=== PATIENT | male | born 1980 | race Caucasian/White ===

== ENCOUNTER 2024-09-27 13:31 | Emergency (ER) | payer OTHER, SELFPAY ==
[2024-09-27 13:31] VITALS: BMI 34.8
[2024-09-27 13:33] VITALS: BP 170/95
[2024-09-27 14:13] VITALS: BP 134/65
--- NOTE | 2024-09-27 14:32 | ED.GENMED ---
History of Present Illness
General
Chief Complaint: Facial Problem
Source: patient
Time Seen by Provider: 09/27/24 14:02
History of Present Illness
History of Present Illness:
44-year-old male presents to the emergency room complaining of facial injury. 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 He has lacerations to his upper and lower lip. No loss of
conscious. Teeth feel like they are in place normally. No other complaints.
Past History
Past History
ED Past Medical History: None
ED Past Surgical History: None
Phy Exam
Physical Exam
Physical Exam:
General: Awake, Alert, Oriented X3. No acute distress.
Vitals: unremarkable
Head: Atraumatic
Eyes: Pupils equal, EOMI
Mouth: Upper lip has a laceration of the left inferior portion of the lip which is through and through but does not extend upward to the vermilion border
Lower lip has some superficial lacerations to the surface of the lip. There is a through and through laceration of the buccal mucosa to the cutaneous surface inferior to the lower lip left of the midline. This is a stellate laceration.
Throat: Airway intact, no exudates
Neck: Trachea midline
Neuro: Nonfocal
Skin: Warm, dry, no rash
Extremities: pulses equal b/l, no edema
Course
Orders/Labs/Results
Orders:
Orders
09/27/24 15:20
Cephalexin Monohydrate [Keflex] 500 mg PO NOW STA
Vital Signs
Initial and Last Documented VS:
Initial Vital Signs
Temp Pulse Resp BP Pulse Ox
97.4 F 54 18 170/95 98
09/27/24 13:33 09/27/24 13:33 09/27/24 13:33 09/27/24 13:33 09/27/24 13:33
Last Documented Vital Signs
Temp Pulse Resp BP Pulse Ox
97.4 F 50 16 134/65 99
09/27/24 13:33 09/27/24 14:13 09/27/24 14:13 09/27/24 14:13 09/27/24 14:13
Procedures
Laceration Closure
Left Upper Lip:
Status of Wound: clean
Size of Wound in cm: 1
Description of Wound Edges: ragged
Revision/Debridement: minor revision and irrigate-direct pressure
Wound exploration: explored to base- no FB
Type of Closure: single layer closure
Skin Closure Material: 5-0 chromic gut
Number of sutures: 5
Additional information:
through and through lip laceration involving the entire surface of lip but not including vermilion border
Left Lower Lip:
Status of Wound: clean
Size of Wound in cm: 2
Description of Wound Edges: ragged
Preparation: cleaned with saline
Anesthesia: 1% Lidocaine with epi and other (submental block with some augmentation into wound edges)
Revision/Debridement: minor revision and debrided
Wound exploration: explored to base- no FB
Type of Closure: layered closure (skin surface and intraoral)
Skin Closure Material: 5-0 chromic gut
Number of sutures: 7
MDM/Problems Addressed
Differential Diagnosis Includes:
laceration, dental injury,
MDM/Problems Addressed:
Patient presents with lacerations of upper and lower lip. Lower lip is a through and through laceration. Laceration closed with rapid absorbing chromic gut. Sutures will dissolve and fall out on their own. Given the intraoral lacerations and the
fact of through and through will cover with a course of antibiotics.
*Critical Care Note
Total Time (30-74mins, 75-104mins- exclusive of procedures): Not Applicable
ED Attending Note
-
Portions of this chart may have been created with voice recognition software.� Occasional wrong word or��sound alike� substitutions may have occurred due to the inherent limitations of voice recognition software.
Discharge Plan
Departure
Patient Disposition: Home (Routine Discharge)
Date of Disposition: 09/27/24
Time of Disposition: 15:20
Patient with high blood pressure during this ER visit?: Yes
Condition: Good
Discharge Problem:
Laceration of intraoral surface of lip, Laceration of upper lip with complication
Instructions: Laceration Repair With Stitches (DC)
Prescriptions:
New
cephalexin 500 mg capsule
500 mg PO BID Qty: 9 0RF
No Action
escitalopram oxalate [Lexapro] 20 mg Tablet
20 mg PO DAILY
Referrals:
Milly Garay MD [Family Provider] -
Activity Restrictions/Additional Instructions:
The stitches will dissolve on their own and will not need to be removed. Take the antibiotic twice a day for for four more days.
Interventions
Interventions:
*Risk Screen - Suicide Last Done: 09/27/24 13:33
*General Assessment Last Done: 09/27/24 13:33
*Neglect/Abuse Screening Last Done: 09/27/24 13:33
*ED- Fall Risk Assessment Last Done: 09/27/24 13:33
*ED COVID-19 Vaccine History Last Done: 09/27/24 13:33
*Nursing Disposition Last Done: 09/27/24 15:27
ED- Neurological Assessment Last Done: 09/27/24 13:52
ED-Skin Assessment Last Done: 09/27/24 13:52
Discharge Date and Time
Discharge Date/Time: 09/27/24 15:28
Print Language: RWANDAN
[2024-09-27] MEDS: KEFLEX 500 MG PO (15:26)
== END 2024-09-27 15:28 | disposition home or self-care (01) ==
LOC: EMR 13:31
PROVIDERS: EMERGENCY PHYSICIAN Emergency Medicine; FAMILY PHYSICIAN Family Medicine
DX: S01.511A Laceration without foreign body of lip, initial encounter (principal); W21.03XA Struck by baseball, initial encounter
CPT/HCPCS: 99282; 12011